=== PATIENT | female | born 1930 | race African-American/Black ===

== ENCOUNTER 2018-04-04 10:13 | Outpatient (RCR) | payer MEDICARE, OTHER ==
[~2018-04-04 10:13] MED LIST: ATENOLOL100 MG PO; CLONIDINE HCL0.1 MG PO; DIPHENOXYLATE-1 EACH PO; FAMOTIDINE20 MG PO; FLAGYL500 MG PO; HYDROCODON-ACE1 EA11 PO; LEVAQUIN500 MG PO; LIDOCAINE VISC 2% SOLN 15 ML UDC ONE; LISINOPRIL-HCT1 EAC1 PO; LISINOPRIL-HCT1 EAC3; METFORMIN HCL500 MG PO; METOPROLOL SUCC50 MG PO; NIFEDIPINE ER30 M1 PO; NORCO 5-325 TA1 EACH PO; PRAVASTATIN SOD20 MG PO; Z SULAR; Z.0.ACTOS45 MG; Z.0.HUMALOG100 UNIT/ SQ; Z.0.LANTUS100 UNIT/1 SQ; ZOFRAN ODT4 MG PO
--- NOTE | 2018-04-04 10:20 | Diagnostic Imaging Report ---
PROCEDURE:X-RAY RIGHT FOOT, TWO VIEWS COMPARISON:None. INDICATIONS:RIGHT FOOT PAIN FINDINGS: The bones are markedly osteopenic. No acute, displaced fracture or dislocation. Appropriate alignment between the medial cuneiform and second metatarsal base in keeping with an intact Lisfranc ligament. Scattered degenerative changes throughout the interphalangeal joints. Mild hallux valgus deformity with associated osteophytosis of the metatarsal head. Atherosclerotic vascular calcifications. CONCLUSION: diffuse osteopenia without acute osseous abnormality. Hallux valgus deformity and scattered degenerative changes within the forefoot. Dictated by: Santiago Arceo M.D. on 04/04/2018 at 10:23 Electronically approved by: Santiago Arceo M.D. on 04/04/2018 at 10:23
[2018-04-04 11:13] LABS: BASOPHILS # (AUTO) 0.1 (0.0-0.1); BASOPHILS % 1.2 % (0.0-1.0); EOSINOPHILS # (AUTO) 0.4 (0.0-0.4); EOSINOPHILS % 6.3 % (0.0-6.0); HEMATOCRIT 29.7 % (34.2-44.1); HEMOGLOBIN 9.9 g/dL (12.0-16.0); LYMPHOCYTES # (AUTO) 2.5 (1.0-3.2); LYMPHOCYTES % 42.4 % (18.0-39.1); MEAN CORPUSCULAR HEMOGLOBIN 29.6 pg (28-32); MEAN CORPUSCULAR HGB CONC 33.3 g/dL (31-35); MEAN CORPUSCULAR VOLUME 88.7 fL (81-99); MONOCYTES # (AUTO) 0.8 (0.2-0.8); MONOCYTES % 14.2 % (4.4-11.3); NEUTROPHILS # (AUTO) 2.1 (2.1-6.9); NEUTROPHILS % 35.6 % (38.7-80.0); PLATELET COUNT 298 x10e3/uL (140-360); RED BLOOD COUNT 3.35 x10e6/uL (3.6-5.1); RED CELL DISTRIBUTION WIDTH 13.2 % (11.7-14.4)
[2018-04-04 11:31] LABS: ALBUMIN 3.5 g/dL (3.5-5.0); ALBUMIN/GLOBULIN RATIO 0.9 (0.8-2.0); ANION GAP 12.4 mmol/L (8-16); CALCIUM 9.4 mg/dL (8.4-10.2); CREATININE, SERUM 1.47 mg/dL (0.57-1.11); POTASSIUM 3.4 mmol/L (3.5-5.1)
[2018-04-04] MEDS ORDERED: LIDOCAINE VISC 2% SOLN 15 ML UDC ONE (16:27)
== END 2018-04-15 ==
LOC: WCC 10:13
PROVIDERS: ATTEND Podiatrist Foot & Ankle Surgery
DX: E11.65 Type 2 diabetes mellitus with hyperglycemia (principal); E11.621 Type 2 diabetes mellitus with foot ulcer; L97.419 Non-pressure chronic ulcer of right heel and midfoot with unspecified severity; I10 Essential (primary) hypertension; N17.9 Acute kidney failure, unspecified
CPT/HCPCS: 36415; 80053; 82948; 83036; 84134; 85025; 87071; 87075; 87186; 87205

== ENCOUNTER → 2018-05-16 | Outpatient (RCR) | payer MEDICARE, OTHER | LOC: WCC 04-18 12:00 | PROVIDERS: ATTEND Family Medicine Adult Medicine | DX: E11.65 Type 2 diabetes mellitus with hyperglycemia (principal); E11.621 Type 2 diabetes mellitus with foot ulcer; L97.419 Non-pressure chronic ulcer of right heel and midfoot with unspecified severity; A49.01 Methicillin susceptible Staphylococcus aureus infection, unspecified site; N17.9 Acute kidney failure, unspecified; I10 Essential (primary) hypertension ==

== ENCOUNTER 2018-08-15 09:10 | Outpatient (RCR) | payer MEDICARE, OTHER ==
[2018-08-15] MEDS ORDERED: LIDOCAINE/PRILOCAINE 2.5-2.5% KIT ONE ×2 (11:57→18:40)
== END 2018-08-16 ==
LOC: WCC 09:10
PROVIDERS: ATTEND Podiatrist Foot & Ankle Surgery
DX: E11.621 Type 2 diabetes mellitus with foot ulcer (principal); E11.65 Type 2 diabetes mellitus with hyperglycemia; L97.419 Non-pressure chronic ulcer of right heel and midfoot with unspecified severity; N17.9 Acute kidney failure, unspecified; I10 Essential (primary) hypertension

== ENCOUNTER 2018-09-05 07:49 | Outpatient (RCR) | payer MEDICARE, OTHER ==
[~2018-09-05 07:49] MED LIST changes: -LIDOCAINE VISC 2% SOLN 15 ML UDC ONE; +MUPIROCIN 2% OINT 22 GM TUBE ONE
[2018-09-05] MEDS ORDERED: LIDOCAINE/PRILOCAINE 2.5-2.5% KIT ONE (14:13)
== END 2018-09-15 ==
LOC: WCC 07:49
PROVIDERS: ATTEND Podiatrist Foot & Ankle Surgery
DX: E11.621 Type 2 diabetes mellitus with foot ulcer (principal); E11.65 Type 2 diabetes mellitus with hyperglycemia; I10 Essential (primary) hypertension; N17.9 Acute kidney failure, unspecified
CPT/HCPCS: 36415; 82948

== ENCOUNTER → 2018-10-16 | Outpatient (RCR) | payer MEDICARE ==
[~2018-10-16] MED LIST changes: +LIDOCAINE VISC 2% SOLN 15 ML UDC ONE; +LIDOCAINE/PRILOCAINE 2.5-2.5% KIT ONE; -MUPIROCIN 2% OINT 22 GM TUBE ONE
== END ==
LOC: WCC 10-03 09:26
PROVIDERS: ATTEND Podiatrist Foot & Ankle Surgery
DX: E11.621 Type 2 diabetes mellitus with foot ulcer (principal); E11.65 Type 2 diabetes mellitus with hyperglycemia; L97.419 Non-pressure chronic ulcer of right heel and midfoot with unspecified severity; I10 Essential (primary) hypertension; N17.9 Acute kidney failure, unspecified

== ENCOUNTER 2018-10-31 10:13 | Outpatient (RCR) | payer MEDICARE ==
[~2018-10-31 10:13] MED LIST changes: -LIDOCAINE VISC 2% SOLN 15 ML UDC ONE; -LIDOCAINE/PRILOCAINE 2.5-2.5% KIT ONE
[2018-10-31] MEDS ORDERED: TRYPSIN/BALSAM PERU/CASTOR OIL ONE (16:54)
[2018-10-31] MEDS ORDERED: CLOTRIMAZOLE/BETAMETHASONE 45 GM CR TP ONE (16:54)
[2018-11-08] MEDS ORDERED: FUROSEMIDE40 MG PO (10:27)
[2018-11-08] MEDS ORDERED: FERROUS SULFAT325 MG PO (10:31)
[2018-11-08] MEDS ORDERED: ULTRAM50 MG PO (12:02)
== END 2018-11-16 ==
LOC: WCC 10:13
PROVIDERS: ATTEND Podiatrist Foot & Ankle Surgery
DX: E11.621 Type 2 diabetes mellitus with foot ulcer (principal); E11.65 Type 2 diabetes mellitus with hyperglycemia; L97.419 Non-pressure chronic ulcer of right heel and midfoot with unspecified severity; N17.9 Acute kidney failure, unspecified; I10 Essential (primary) hypertension

== ENCOUNTER 2018-11-08 09:14 | Emergency (ER) | payer MEDICARE ==
[~2018-11-08] VITALS: Ht 162.6 cm; Wt 49.9 kg
--- OUTSIDE RECORDS SUMMARY | 2018-11-08 09:17 | XMS REPORT | Clinical Summary ---
Author Author [facility] Address Unknown Phone Unavailable Care Team Providers Care Child Specialist Name Role Phone Saúl Bauman MD PCP Allergies Comments Active Allergy Reactions Severity Noted Date Iodine 09/10/2017 Medications No known medications Active Problems Not on file Social History Date Tobacco Use Types Packs/Day Years Used Never Smoker Smokeless Tobacco: Never Used Alcohol Use Drinks/Week oz/Week Comments No Sex Assigned at Date Recorded Not on file Industry Job Start Date Occupation Not on file Not on file Not on file Travel End Travel History Travel Start No recent travel history available. Last Filed Vital Signs Not on file Plan of Treatment Health Maintenance Due Date Last Done Comments SHINGLES VACCINES (1 of 12/31/1981 2) PNEUMOCOCCAL 12/31/1996 POLYSACCHARIDE VACCINE AGE 65 AND OVER PNEUMOCOCCAL-13 12/31/1996 INFLUENZA VACCINE 05/17/2018 Results Not on fileafter 11/07/2017 Insurance Payer Benefit Subscriber ID Type Phone Address Plan / Group [employer] xxxxxxxxx O [employer] [facility] Advance Directives Patient has advance care planning documents on file. For more information, fabian easton contact: Les Mariano [address] [place] [address]
--- OUTSIDE RECORDS SUMMARY | 2018-11-08 09:17 | XMS REPORT ---
Author Author [facility] Address Unknown Phone Unavailable Care Team Providers Care Music Researcher Name Role Phone Thu MOSQUEDA Unavailable Unavailable MERA JEFFREY Unavailable Unavailable Payers Payer Name Policy Type Policy Number Effective Date Expiration Date Problems This patient has no known problems. Allergies, Adverse Reactions, Alerts Allergy Name Allergy Type Status Severity Reaction(s) Onset Date Inactive Date Treating Clinician Comments Iodinated Contrast Media - IV Dye DA Active U 2012-03-24 00:00:00 iodine DA Active U 2012-03-24 00:00:00 SEAFOOD DA Active U 2012-03-21 00:00:00 Medications This patient has no known medications. Results Test Description Test Time Test Comments Text Results Atomic Results Result Comments FOOT RIGHT AP LAT 2018-04-04 10:23:00 [facility] [address] [place] [id number] Patient Name: FLAVIA WILDER MR #: [id number] : 1930 Age/Sex: 88/F Req #: [id number] Adm Physician: Ordered by: SRINI MOSQUEDA DPM Report #: [id number] Location: [facility] Room/Bed: Procedure: [id number] DX/FOOT RIGHT AP LAT Exam Date: 04/04/18 Exam Time: 0915 REPORT STATUS: Signed PROCEDURE: X-RAY RIGHT FOOT, TWO VIEWS COMPARISON: None. INDICATIONS: RIGHT FOOT PAIN FINDINGS: The bones are markedly osteopenic. No acute, displaced fracture or dislocation. Appropriate alignment between the medial cuneiform and second metatarsal base in keeping with an intact Lisfranc ligament. Scattered degenerative changes throughout the interphalangeal joints. Mild hallux valgus deformity with associated osteophytosis of the metatarsal head. Atherosclerotic vascular calcifications. CONCLUSION: diffuse osteopenia without acute osseous abnormality. Hallux valgus deformity and scattered degenerative changes within the forefoot. Dictated by: Kassy Otto M.D. on 04/04/2018 at 10:23 Electronically approved by: Kassy Otto M.D. on 04/04/2018 at 10:23 Dictated By: KASSY OTTO MD 1023 Transcribed By: DEON on 04/04/18 1023 COPY TO: SRINI MOSQUEDA DPM US ABDOMEN COMPLETE [place] [address] Patient Name: FLAVIA WILDER MR #: [id number] : 1930 Age/Sex: 87/F Req #: [id number] Adm Physician: MERA JEFFREY MD Ordered by: MERA JEFFREY MD Report #: [id number] Location: [facility] Room/Bed: [place] [address] Procedure: [id number] US/US ABDOMEN COMPLETE Exam Date: 09/04/17 Exam Time: 1620 REPORT STATUS: Signed EXAM: Complete Abdominal Ultrasound INDICATION: Gallstones COMPARISON: CT abdomen and pelvis 09/03/2017 TECHNIQUE: Transverse and longitudinal images of the upper abdomen were obtained. FINDINGS: Liver: Size: 12.2 cm in the right midclavicular line, normal Appearance: Normal echogenicity, smooth contour Mass: No focal masses Main Portal Vein: 0.7 cm, normal size with hepatopetal flow. Spleen: Size: 6.5 cm in length, normal Echogenicity: Normal Mass: No focal masses Gallbladder: The gallbladder is not visualized secondary to overlying bowel gas and increased body habitus. Sonographic Acosta's Sign: Negative Bile Ducts: Intrahepatic Ducts: No dilatation Common bile duct measures 10.0 mm. Pancreas: The pancreas was insufficiently visualized to comment secondary to overlying bowel gas. Right Kidney: Size: 6.9 cm Echogenicity: Increased Parenchymal thickness: Normal Collecting System: No hydronephrosis Stone: None Cyst/Mass: None Left Kidney: Size: 7.5 cm Echogenicity: Increased Parenchymal thickness: Normal Collecting System: No hydronephrosis Stone: None Cyst/Mass: None Vessels: Aorta: Atherosclerotic calcifications Inferior Vena Cava: Visualized portions are normal Free Fluid: No ascites or pleural effusion IMPRESSION: Nonvisualization of the gallbladder secondary to bowel gas. Prominent common bile duct, without sonographic evidence of choledocholithiasis. Increased renal cortical echogenicity may represent medical renal disease. Signed by: Dr. Rachele Pham M.D. on 09/04/2017 5:04 PM Dictated By: RACHELE PHAM MD 03 Transcribed By: KYLER on 09/04/171703 COPY TO: MERA JEFFREY MD CT ABDOMEN/PELVIS [place] [address] Patient Name: FLAVIA WILDER MR #: [id number] : 1930 Age/Sex: 87/F Req #: [id number] Adm Physician: Ordered by: GRISEL VO MD Report #: [id number] Location: ER Room/Bed: Procedure: [id number] CT/CT ABDOMEN/PELVIS WO Exam Date: 09/03/17 Exam Time: 1822 REPORT STATUS: Signed EXAM: CT ABDOMEN/PELVIS WO DATE: 09/03/2017 4:50 PM INDICATION: S ACUTE ABDOMINAL PAIN (LOWER) ORAL CONTRAST ONLY S [id number] COMPARISON: 09/03/2013 TECHNIQUE: The abdomen and pelvis were scanned using a multidetect or helical scanner. Coronal and sagittal reformations were obtained. Routine protocol performed. IV Contrast none. FINDINGS: Lack of IV contrast decreases sensitivity in evaluating abdominal and pelvic organs. LOWER THORAX: Minimal scattered atelectasis or scarring. Atherosclerotic and coronary artery disease. LIVER/BILIARY: No masses. Common bile duct is mildly dilated, 1 cm, not seen on prior. GALLBLADDER: Unremarkable SPLEEN: Unremarkable PANCREAS: Unremarkable ADRENALS: No nodules KIDNEYS: Malrotated right kidney. No hydronephrosis or stone disease. GI TRACT: No evidence of obstruction. Extensive diverticulosis with likely chronic sigmoid thickening. No acute inflammatory changes. VESSELS: Extensive/diffuse vascular atherosclerotic calcifications. PERITONEUM/RETROPERITONEUM: Trace pelvic free fluid. LYMPH NODES: No lymphadenopathy REPRODUCTIVE ORGANS/BLADDER: Bladder is decompressed with a Norris precluding evaluation. Otherwise grossly unremarkable. SOFT TISSUES: Midline postsurgical changes. BONES: Multilevel degenerative changes of the spine and hips. IMPRESSION: 1. Mild biliary ductal dilation, nonspecific. Correlate with bilirubin and consider follow-up MRCP/MRI as indicated. 2. Otherwise no acute abnormality on noncontrast evaluation. Signed by: Dr Felipa Thakkar MD on 09/03/2017 7:23 PM Dictated By: FELIPA THAKKAR MD 22 Transcribed By: KYLER on 09/03/171922 COPY TO: GRISEL VO MD
--- NOTE | 2018-11-08 10:16 | Diagnostic Imaging Report ---
Exam: Right shoulder radiographs-2 view History: Status post fall with shoulder pain. Comparison: None. Findings: No evidence of acute displaced fracture or dislocation. There are moderate degenerative changes of the right glenohumeral and acromioclavicular joints. Subacromial osteophyte is noted. Curvilinear ovoid calcification overlying the humeral head may reflect calcific tendinopathy. Impression: No acute radiographic abnormality. Signed by: Dr. Starla Haskins MD on 11/08/2018 10:12 AM
[2018-11-08] MEDS ORDERED: FUROSEMIDE40 MG PO (10:27)
[2018-11-08] MEDS ORDERED: FERROUS SULFAT325 MG PO (10:31)
[2018-11-08] MEDS ORDERED: HYDROCODONE/APAP 5MG-325MG TAB PO ONE (10:45)
--- NOTE | 2018-11-08 11:32 | Diagnostic Imaging Report ---
TECHNIQUE: Computed tomography imaging of the RIGHT SHOULDER was performed WITHOUT injected contrast. Dose modulation, iterative reconstruction, and/or weight based adjustment of the mA/kV was utilized to reduce the radiation dose to as low as reasonably achievable. COMPARISON: None available. HISTORY: Pain, fall FINDINGS: No acute fracture. Soft tissue calcification overlying the rotator cuff. The supraspinatus tendon appears attenuated. No muscle atrophy. No fluid collections. Mild glenohumeral and moderate acromioclavicular degenerative arthrosis. Subacromial spurring. IMPRESSION: No acute fracture. 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 Probable supraspinatus tear with subacromial spurring. Signed by: Dr. Gianfranco Fox M.D. on 11/08/2018 11:29 AM
[2018-11-08] MEDS ORDERED: ULTRAM50 MG PO (12:02)
[2018-11-08 12:21] VITALS: BP 131/51
== END 2018-11-08 12:23 | disposition home or self-care (01) ==
LOC: ER 09:14
DX: M25.511 Pain in right shoulder (principal); S46.011A Strain of muscle(s) and tendon(s) of the rotator cuff of right shoulder, initial encounter; W01.0XXA Fall on same level from slipping, tripping and stumbling without subsequent striking against object, initial encounter; Y92.008 Other place in unspecified non-institutional (private) residence as the place of occurrence of the external cause
CPT/HCPCS: 99284

== ENCOUNTER 2018-12-12 07:40 | Outpatient (RCR) | payer MEDICARE ==
[~2018-12-12 07:40] MED LIST changes: +FERROUS SULFAT325 MG PO; +FUROSEMIDE40 MG PO; +LIDOCAINE VISC 2% SOLN 15 ML UDC ONE; +ULTRAM50 MG PO
== END 2018-12-14 ==
LOC: WCC 07:40
PROVIDERS: ATTEND Podiatrist Foot & Ankle Surgery
DX: E11.621 Type 2 diabetes mellitus with foot ulcer (principal); E11.65 Type 2 diabetes mellitus with hyperglycemia; L97.419 Non-pressure chronic ulcer of right heel and midfoot with unspecified severity; I10 Essential (primary) hypertension; N17.9 Acute kidney failure, unspecified

== ENCOUNTER 2019-01-09 10:55 | Outpatient (RCR) | payer MEDICARE ==
[~2019-01-09 10:55] MED LIST changes: +MINERAL OIL/PETROLAT/GLYCERI 6OZ BTL ONE; +MUPIROCIN 2% OINT 22 GM TUBE ONE
== END 2019-01-14 ==
LOC: WCC 10:55
PROVIDERS: ATTEND Podiatrist Foot & Ankle Surgery
DX: E11.621 Type 2 diabetes mellitus with foot ulcer (principal); E11.65 Type 2 diabetes mellitus with hyperglycemia; L97.419 Non-pressure chronic ulcer of right heel and midfoot with unspecified severity; N17.9 Acute kidney failure, unspecified; I10 Essential (primary) hypertension

== ENCOUNTER 2019-01-16 08:08 | Outpatient (RCR) | payer MEDICARE ==
[~2019-01-16 08:08] MED LIST changes: -LIDOCAINE VISC 2% SOLN 15 ML UDC ONE; -MINERAL OIL/PETROLAT/GLYCERI 6OZ BTL ONE; -MUPIROCIN 2% OINT 22 GM TUBE ONE
[2019-01-16] MEDS ORDERED: LIDOCAINE VISC 2% SOLN 15 ML UDC ONE (13:11)
[2019-01-16] MEDS ORDERED: MINERAL OIL/PETROLAT/GLYCERI 6OZ BTL ONE (13:11)
== END 2019-02-13 ==
LOC: WCC 08:08
PROVIDERS: ATTEND Podiatrist Foot & Ankle Surgery
DX: E11.621 Type 2 diabetes mellitus with foot ulcer (principal); E11.65 Type 2 diabetes mellitus with hyperglycemia; L97.419 Non-pressure chronic ulcer of right heel and midfoot with unspecified severity; I10 Essential (primary) hypertension; N17.9 Acute kidney failure, unspecified